=== PATIENT | female | born 1985 | race Two or more races ===

== ENCOUNTER 2021-10-13 12:46 | Emergency (ER) | payer OTHER ==
[2021-10-13 13:01] VITALS: BMI 39.4
[2021-10-13] MEDS ORDERED: SODIUM CHLORIDE 0.9% 500 ML INFUS.BAG IV ONE (14:24)
[2021-10-13 15:01] LABS: EOS % 0.6 % (0-4.5); HEMATOCRIT 38.8 % (32.4-45.2); HEMOGLOBIN 12.4 GM/dL (10.7-15.3); LYMPH % 22.6 % (8-40); MCH 24.7 pg (25.7-33.7); MEAN CELL VOLUME 77.2 fl (80-96); MEAN PLT VOLUME 9.1 fl (7.5-11.1); MONO % 7.7 % (3.8-10.2); NEUT % 68.1 % (42.8-82.8); PLATELET COUNT 329 10^3/uL (134-434); RBC 5.02 M/mm3 (3.60-5.2); RDW 17.7 % (11.6-15.6); WHITE BLOOD COUNT 13.5 K/mm3 (4.0-10.0)
[2021-10-13 15:23] LABS: ALBUMIN 3.8 g/dl (3.4-5.0)
[2021-10-13 15:24] LABS: BLOOD UREA NITROGEN 10.3 mg/dL (7-18)
[2021-10-13 15:26] LABS: CREATININE 0.7 mg/dL (0.55-1.3)
[2021-10-13 15:28] LABS: BILIRUBIN,TOTAL 0.6 mg/dL (0.2-1); TOT PROT 8.6 g/dl (6.4-8.2)
[2021-10-13 15:56] LABS: EPI CELLS >36 /uL (0-25.1); HCG,QUALITATIVE URINE Negative; HYALINE CASTS 0 /uL (0-3.1); PH,URINE 5.5 (5.0-8.0); URINE APPEARANCE CLEAR; URINE BACTERIA 1347 /uL (0-1359); URINE BILIRUBIN NEGATIVE (NEGATIVE); URINE COLOR YELLOW; URINE GLUCOSE (UA) NEGATIVE (NEGATIVE); URINE KETONE NEGATIVE (NEGATIVE); URINE LEUK ESTERASE 2+ (NEGATIVE); URINE NITRITE NEGATIVE (NEGATIVE); URINE PROTEIN NEGATIVE (NEGATIVE); URINE RBC 10 /uL (0-23.9); URINE UROBILINOGEN 0.2 mg/dL (0.2-1.0); URINE WBC 65 /uL (0-25.8)
[2021-10-13 18:48] VITALS: BP 122/76; PULSE 72; TEMP 98.6
== END 2021-10-13 18:48 | disposition home or self-care (01) ==
LOC: JER 12:46
DX: N30.00 Acute cystitis without hematuria (principal)
CPT/HCPCS: 0241U-QW; 36415; 71046-TC-FY; 80053; 81003; 84484; 84703; 85025; 87077; 87086; 93005; 93010; 99285-25